=== PATIENT | female | born 1945 | race African-American/Black ===

== ENCOUNTER 2016-08-23 15:20 | Emergency (ER) | payer MEDICARE ==
[~2016-08-23 15:20] MED LIST: HERBALS; NORV10 PO; VITAMINS; XYZAL5 MG PO
== END 2016-08-23 16:14 | disposition home or self-care (01) ==
LOC: ER 15:20
DX: S61.210A Laceration without foreign body of right index finger without damage to nail, initial encounter (principal); S80.212A Abrasion, left knee, initial encounter; S50.811A Abrasion of right forearm, initial encounter; I10 Essential (primary) hypertension; Z88.1 Allergy status to other antibiotic agents; Z79.899 Other long term (current) drug therapy; W19.XXXA Unspecified fall, initial encounter
CPT/HCPCS: 73110-RT; 90714; 99283; A9270-GY